=== PATIENT | male | born 1985 | race Caucasian/White ===

== ENCOUNTER 2020-09-17 18:27 | Emergency (ER) | payer OTHER ==
[2020-09-17] MEDS ORDERED: Ibuprofen 600 MG Tab PO ONE (19:34)
[2020-09-17] MEDS ORDERED: Acetaminophen/HYDROcodone 325-5 MG Tab PO ONE (19:35)
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
== END 2020-09-17 19:50 ==
LOC: MW.ED 18:27
DX: S00.01XA Abrasion of scalp, initial encounter (principal); M25.511 Pain in right shoulder; V89.2XXA Person injured in unspecified motor-vehicle accident, traffic, initial encounter; Y92.410 Unspecified street and highway as the place of occurrence of the external cause
CPT/HCPCS: 99283; A9270; 99284